=== PATIENT | female | born 1940 | race Caucasian/White ===

== ENCOUNTER 2016-11-08 14:10 | Emergency (ER) | payer MEDICARE, OTHER ==
[~2016-11-08] VITALS: Wt 79.5 kg
[~2016-11-08 14:10] MED LIST: xanax PO
[2016-11-08] MEDS ORDERED: HYDROCODONE/APAP (5/325) TAB PO ONE (15:00)
--- NOTE | 2016-11-08 16:35 | RADRPT ---
AMENDMENT: 11/08/2016 4:42:18 PM Jaye Winters M.D. Addendum: There is a nondisplaced fracture of the right posterior sixth rib. RPTAT: BB PROCEDURE: CT Chest without contrast. CLINICAL INDICATION: Right upper back pain status post fall TECHNIQUE: CT scan of the chest without contrast was performed on a multidetector high-resolution CT scanner. Coronal and sagittal reformatted images were obtained from the axial source images. The total exam CTDI equals 7.77 mGy and the total exam DLP equals 291.53 mGy-cm. One or more of the following dose reduction techniques were used: Automated exposure control. Adjustment of the mA and/or kV according to patient size. Use of iterative reconstruction technique. COMPARISON: None FINDINGS: There is mild bibasilar atelectasis/scarring. No focal opacification, effusion, pneumothorax, edema , or nodules are seen. There is no pulmonary infiltrate. No mass lesion to suggest neoplasm is linda ntified. The central tracheobronchial tree is clear. The mediastinum is unremarkable without evidence for mass or lymphadenopathy. The vascular structur es of the mediastinum are normal in course and caliber. Aortic vascular calcifications and coronary artery calcifications are present. The heart size is normal without evidence for pericardial thick ening or effusion. The axillary regions, subpectoral regions, and supraclavicular regions are all unremarkable. Imagin g obtained through the upper abdomen reveals no acute abnormality. The surrounding osseous structur es are remarkable for degenerative spondylosis of the spine. No osteolytic or osteoblastic lesion i s detected. There is slightly increased thoracic kyphosis related to chronic anterior height loss of T6, T7 and T8. Mild disk height loss with ventral osteophytes are noted more evident in the mid th oracic spine. IMPRESSION: 1. No acute traumatic abnormality. 2. No mass, lymphadenopathy or acute infiltrates. 3. Mildly increased thoracic kyphosis related to old anterior compression fractures. Mild thoracic spondylosis more evident in the mid thoracic spine. 4. Aortic and coronary artery calcifications. RPTAT: BB .Jaye Winters MD, Date Time Electronically viewed and signed by .Jaye Winters MD, on 11/08/2016 16:42 .O/
[2016-11-08] MEDS ORDERED: HYDR-906 PO (16:46)
[2016-11-08] MEDS ORDERED: DOCU-144 PO (16:46)
--- NOTE | 2016-11-19 10:25 | ERD ---
ER Documentation Chief Complaint Date/Time DATE: 11/19/16 TIME: 10:18 Chief Complaint MECH FALL , HAS RIGHT SHOULDER BLADE PAIN HPI 9-year-old female presents with right upper back pain after falling backwards will be getting up to use the bathroom 2 nights ago. She has pain in her right scapula. She denies any hemoptysis, head injury, neck pain, weakness, shortness of breath or anterior chest pain. ROS All systems reviewed and are negative except as per history of present illness. Medications Home Meds Active Scripts Docusate Sodium* (Colace*) 100 Mg Capsule, 100 MG PO BID, #20 CAP Prov:SERAFIN SALINAS MD 11/08/16 Hydrocodone/Acetaminophen ([place] 5-325 Tablet) 1 Each Tablet, 1 TAB PO Q6H Y for PAIN, #12 TAB Prov:SERAFIN SALINAS MD 11/08/16 Reported Medications [xanax] No Conflict Check, 1 MG PO HS 02/27/12 Allergies Allergies: Uncoded Allergies: PCN (Allergy, 02/27/12) PMhx/Soc History of Surgery: No Anesthesia Reaction: No Hx Neurological Disorder: No Hx Respiratory Disorders: No Hx Cardiac Disorders: No Hx Psychiatric Problems: No Hx Miscellaneous Medical Probl: No Hx Alcohol Use: No Hx Substance Use: No Hx Tobacco Use: No Smoking Status: Never smoker Physical Exam Physical Exam Const: [] Alert, not ill-appearing Head: Atraumatic Eyes: Normal Conjunctiva ENT: Normal External Ears, Nose and Mouth. Neck: Full range of motion..~ No meningismus. Resp: Clear to auscultation bilaterally Cardio: Regular rate and rhythm, no murmurs Abd: Soft, non tender, non distended. Normal bowel sounds Skin: No petechiae or rashes Back: No midline or flank tenderness. Some tenderness in the right upper back and the scapula and infrascapular area. There is no skin changes, crepitance, bleeding or lacerations. Ext: No cyanosis, or edema Neur: Awake and alert Psych: Normal Mood and Affect Results 24 hrs Current Medications Medications (Trade) Dose Ordered Sig/Deirdre Route PRN Reason Start Time Stop Time Status Last Admin Dose Admin Acetaminophen/ Hydrocodone Bitart ([place] (5/325)) 1 tab ONCE ONCE PO 11/08/16 15:00 11/08/16 15:01 DC 11/08/16 14:43 Procedures/MDM Patient was given [place] [address] scan of the chest shows nondisplaced rib fracture posteriorly at T6. There are no additional acute findings noted.. There are no signs or symptoms to suggest neck injury, head injury, additional injuries to her fall. Patient presents with a right posterior T6 rib fracture without signs or symptoms of hemothorax, pneumothorax, additional acute complications. She will treated with Colace and Decatur at home instructed to follow-up with primary doctor this week. The patient was stable with no new complaints during the ER course. Clinically, there is no current evidence to suggest meningitis, sepsis, acute abdomen, pneumonia, acute coronary syndrome, pulmonary embolism, or any other emergent condition appearing to require further evaluation or hospitalization. The patient should certainly return for any new or worsening symptoms per the aftercare instructions. They should otherwise follow-up with her primary care doctor for reevaluation this week. Departure Diagnosis: Primary Impression: Rib fracture Condition: Stable Patient Instructions: Rib Fracture (Broken Rib) Additional Instructions: There is a single nondisplaced rib fracture seen on CT scan. There is usually no treatment for this except pain control and observation for complications. Discuss with anesthesiology effect on upcoming surgery. Recheck for fevers, blood, new worsening symptoms with primary care doctor. SERAFIN SALINAS MD Nov 19, 2016 10:25
== END 2016-11-08 17:12 | disposition home or self-care (01) ==
LOC: FTE 14:10
DX: S22.31XA Fracture of one rib, right side, initial encounter for closed fracture (principal); W18.39XA Other fall on same level, initial encounter; Y92.9 Unspecified place or not applicable
CPT/HCPCS: 71250

== ENCOUNTER 2019-01-12 17:10 | Emergency (ER) | payer MEDICARE, OTHER ==
[~2019-01-12] VITALS: Ht 170.2 cm; Wt 70.7 kg
[~2019-01-12 17:10] MED LIST changes: +DOCU-144 PO; +HYDR-4011 PO
[2019-01-12 17:45] VITALS: Ht 170.2 cm; Wt 70.7 kg
--- NOTE | 2019-01-12 21:17 | ERD ---
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 States that she noticed a lump right away. Denies any hip pain and states that she is ambulatory. Has not seen any other providers regarding this issue. She is afraid that given her history of DVTs that she might have a clot. Denies any cough, chest pain, shortness of breath, hemoptysis, leg swelling, redness on legs, malignancy. ROS All systems reviewed and are negative except as per history of present illness. Medications Home Meds Active Scripts Docusate Sodium* (Colace*) 100 Mg Capsule, 100 MG PO BID, #20 CAP Prov:SERAFIN SALINAS MD 11/08/16 Hydrocodone/Acetaminophen ([place] 5-325 Tablet) 1 Each Tablet, 1 TAB PO Q6H PRN f or PAIN, #12 TAB Prov:SERAFIN SALINAS MD 11/08/16 Reported Medications [xanax] No Conflict Check, 1 MG PO HS 02/27/12 Allergies Allergies: Coded Allergies: ciprofloxacin (Verified Allergy, Unknown, 01/12/19) levofloxacin (Verified Allergy, Unknown, 01/12/19) Uncoded Allergies: PCN (Allergy, Unknown, 01/12/19) PMhx/Soc History of Surgery: Yes (heart valve repl 10/16/18 'TAVR' procedure) Anesthesia Reaction: No Hx Neurological Disorder: No Hx Respiratory Disorders: Yes (blood clot lung) Hx Cardiac Disorders: No Hx Psychiatric Problems: No Hx Miscellaneous Medical Probl: Yes (DVT) Hx Alcohol Use: No Hx Substance Use: No Hx Tobacco Use: No Smoking Status: Never smoker FmHx Family History: No diabetes, No coronary disease, No other Physical Exam Vitals Vital Signs Date Temp Pulse Resp B/P (MAP) Pulse Ox O2 O2 Flow FiO2 Time Delivery Rate 01/12/19 98.7 67 19 117/69 99 Room Air 23:06 (85) 01/12/19 98.5 72 18 120/72 97 17:45 (88) Physical Exam Const: No acute distress Head: Atraumatic Eyes: Normal Conjunctiva ENT: Normal External Ears, Nose and Mouth. Neck: Full range of motion. No meningismus. Resp: Clear to auscultation bilaterally Cardio: Regular rate and rhythm, no murmurs Abd: Soft, non tender, non distended. Normal bowel sounds Skin: No petechiae or rashes Back: No midline or flank tenderness Ext: No cyanosis, or edema Neur: Awake and alert Psych: Normal Mood and Affect Right hip. Ecchymosis noted on the lateral aspect of right hip. There is also approximately 2 indurated nonfluctuant nonerythematous and nontender to palpation mass noted in the right hip area as well. Patient is amatory without difficulty. Full range of motion of hip. Compartments are all soft and warm. There is no underlying bony deformity of right hip or right lower extremity noted. Procedures/MDM DIAGNOSTIC IMAGING REPORT Patient: JACQUELINE TURNER : 1940 Age: 78 Sex: F MR #: [id number] DOS: 01/12/192101 Ordering MD: AUDIE DOMINGUEZ Location: [facility] Room/Bed: PROCEDURE: US DVT. CLINICAL INDICATION: Right lower extremity pain and swelling. TECHNIQUE: Multiple longitudinal and transverse images of the right lower extremity veins were obtained with pardo scale and color Doppler imaging. 2D grayscale measurements with compression, color Doppler flow, and augmentation was performed. The calf veins were interrogated as well. COMPARISON: No prior studies are available for comparison. FINDINGS: The right common femoral, superficial femoral and popliteal veins are normally compressible throughout. Color flow demonstrates normal filling of the vessel. Normal waveforms are visualized and there is normal response to augmentation. The calf veins are visualized and are equally unremarkable. IMPRESSION: 1. No evidence of a deep vein thrombosis involving the right lower extremity. RPTAT: HFN .Shantel Nielson MD, Date Time Electronically viewed and signed by .Shantel Nielson MD, MD on 01/12/2019 21:45 .N/ CC: AUDIE DOMINGUEZ [id number] DIAGNOSTIC IMAGING REPORT Patient: JACQUELINE TURNER : 1940 Age: 78 Sex: F MR #: [id number] DOS: 01/12/192101 Ordering MD: AUDIE DOMINGUEZ Location: [facility] Room/Bed: PROCEDURE: US soft tissue CLINICAL INDICATION: Fall, lump on right hip. TECHNIQUE: Pardo scale and color Doppler sonographic evaluation of the right hip was performed. COMPARISON: None. FINDINGS: Sonographic examination was performed in the area of the clinical interest in superolateral right hip. There is a mildly complex fluid collection measuring 2 x 2.5 x 1.6 cm. IMPRESSION: 1. Mildly complex fluid collection in the region of clinical interest in superolateral right hip. Given the history of recent trauma, finding may represent hematoma. Recommend clinical follow-up and follow-up imaging as clinically warranted to document resolution. RPTAT:HAJM Physician Bebeto Date Time Electronically viewed and signed by Physician Bebeto on 01/12/2019 22:24 RM/ CC: AUDIE DOMINGUEZ [id number] MDM: Ultrasound was performed which showed no evidence of DVT however did show possible hematoma. Given findings this is clinically correlated. There is no tenderness to palpation, fevers, fluctuance, therefore my suspicion for abscess or acute space infection is very low. Patient advised to follow-up with primary care. In addition, patient is well score does not indicate d-dimer testing. X-rays are ordered given patient's history of trauma as well as ecchymosis however patient refused the hip x-rays. I discussed the risks of not performing x-rays with patient. At this time, patient is stable for discharge and outpatient management. I have instructed the patient to follow-up with his/her primary care physician in 1-2 days. I have discussed with the patient the possibility of needing to see a specialist for further workup and imaging studies if symptoms persist. I have instructed the patient to promptly return to the ER for any new or worsening symptoms including but not limited to increased pain, fever, nausea, vomiting, weakness or LOC. The patient and/or family expressed understanding of and agreement with this plan. All questions were answered. Home care instructions were provided. DISCLAIMER: Inadvertent spelling and grammatical errors are likely due to EHR/dictation software use and do not reflect on the overall quality of patient care. Also, please note that the electronic time recorded on this note does not necessarily reflect the actual time of the patient encounter. Departure Diagnosis: Primary Impression: Hip injury Encounter type: initial encounter Laterality: right Qualified Codes: S79.911A - Unspecified injury of right hip, initial encounter Additional Impression: Mass of hip region Laterality: right Qualified Codes: R22.41 - Localized swelling, mass and lump, right lower limb Condition: Stable AUDIE DOMINGUEZ Jan 12, 2019 21:17
[2019-01-12 23:06] VITALS: BP 117/69; PULSE 67; RESP 19
--- NOTE | 2019-01-13 17:14 | EN ---
Date/Time of Note Date/Time of Note DATE: 01/13/19 TIME: 17:11 ER Progress Note I spoke with Dr. Silva today and asked him if he felt that my care of patient disposition was appropriate, especially my decision to not perform blood work as well is administer prophylactic antibiotics. Dr. Silva reassured me that my care was appropriate and patient would not need to come back for further blood work or antibiotics at this time, rather patient could follow-up with primary care provider which I advised her to do and she agreed to do. I called patient today and left a message on her answering reminding her to follow-up with the primary care physician and to call ER if she had any questions. AUDIE DOMINGUEZ Jan 13, 2019 17:13
== END 2019-01-12 23:08 | disposition home or self-care (01) ==
LOC: FTE 17:10
DX: S79.911A Unspecified injury of right hip, initial encounter (principal); W18.39XA Other fall on same level, initial encounter; Y92.9 Unspecified place or not applicable
CPT/HCPCS: 76536; 93971